=== PATIENT | male | born 1975 | race Caucasian/White ===

== ENCOUNTER 2017-08-22 14:52 | Emergency (ER) | payer OTHER ==
[2017-08-22] MEDS: predniSONE 20 MG TAB PO (17:36)
[2017-08-22] MEDS: KETOROLAC 60 MG INJ IM (17:37)
== END 2017-08-22 19:08 | disposition home or self-care (01) ==
LOC: FTE 14:52
DX: M54.42 Lumbago with sciatica, left side (principal); I10 Essential (primary) hypertension; F17.210 Nicotine dependence, cigarettes, uncomplicated
CPT/HCPCS: 72131; 96372; 99285-25

== ENCOUNTER 2018-05-19 06:00 | Inpatient (IN) | payer OTHER ==
[2018-05-19] MEDS ORDERED: CEFAZOLIN 2 GM/50 ML (PMX) 50 ML IVPB (07:00)
[2018-05-19] MEDS ORDERED: ROCURONIUM 50 MG INJ (07:49)
[2018-05-19] MEDS ORDERED: MEPERIDINE 100 MG INJ (07:49)
[2018-05-19] MEDS ORDERED: LIDOCAINE 2% (SDV) 5 ML INJ (07:49)
[2018-05-19] MEDS ORDERED: SUCCINYLCHOLINE CHLORIDE 100 MG/5 ML SYG IV (07:49)
[2018-05-19] MEDS ORDERED: PROPOFOL 20 ML (07:49)
[2018-05-19] MEDS ORDERED: GLYCOPYRROLATE 0.4 MG INJ ×2 (07:49→09:17)
[2018-05-19] MEDS ORDERED: NEOSTIGMINE 3 MG/3 ML SYRINGE ×2 (07:49→09:18)
[2018-05-19] MEDS ORDERED: CEFAZOLIN 1 GM INJ (08:42)
[2018-05-19] MEDS ORDERED: hydrALAzine 20 MG INJ (08:43)
[2018-05-19] MEDS: THROMBIN (BOVINE) 5,000 UNIT VIAL TP ×2 (08:46)
[2018-05-19] MEDS: POLYMYXIN/BACITRACIN 1L IRRIG (08:46)
[2018-05-19] MEDS: BUPIVACAINE 0.5%/EPI (SDV) 30 ML INJ (08:46)
[2018-05-19] MEDS: GELATIN SIZE 100 SPONGE (08:46)
[2018-05-19] MEDS: CA CHLORIDE 10% 10 ML SYRINGE (09:10)
[2018-05-19] MEDS ORDERED: ONDANSETRON 4 MG INJ (09:46)
[2018-05-19] MEDS ORDERED: CYCLOBENZAPRINE 10 MG TAB PO (10:00)
[2018-05-19] MEDS ORDERED: CEPASTAT LOZENGE MT (10:00)
[2018-05-19] MEDS ORDERED: DIPHENHYDRAMINE 25 MG CAP PO (10:00)
[2018-05-19] MEDS ORDERED: PROCHLORPERAZINE 10 MG TAB PO (10:00)
[2018-05-19] MEDS ORDERED: ACETAMINOPHEN 325 MG TAB PO (10:00)
[2018-05-19] MEDS ORDERED: HYDROmorphONE 0.5 MG/0.5 ML SYG IV (10:00)
[2018-05-19] MEDS ORDERED: NALOXONE (0.4 MG/ML) INJ IV (10:00)
[2018-05-19] MEDS ORDERED: HYDROCODONE/APAP (5/325) TAB PO ×2 (10:00)
[2018-05-19] MEDS ORDERED: HYDROmorphONE 1 MG/5 ML IV SYRINGE IV (10:30)
[2018-05-19] MEDS ORDERED: METOCLOPRAMIDE 10 MG INJ IV (10:30)
[2018-05-19] MEDS ORDERED: LABETALOL HCL 20MG INJ IV (10:30)
[2018-05-19] MEDS ORDERED: DIPHENHYDRAMINE 50 MG INJ IV (10:30)
[2018-05-19] MEDS ORDERED: EPHEDrine SULFATE 50 MG/5 ML SYG IV (10:30)
[2018-05-19] MEDS ORDERED: hydrALAzine 20 MG INJ IV (10:30)
[2018-05-19] MEDS ORDERED: ONDANSETRON 4 MG INJ IV (10:30)
[2018-05-19] MEDS ORDERED: MEPERIDINE 25 MG INJ IV (10:30)
[2018-05-19] MEDS ORDERED: MIDAZOLAM 1 MG/ML 2 ML INJ IV (10:30)
[2018-05-19] MEDS ORDERED: OXYCODONE/ACETAMINOPHEN (5/325) TAB PO ×2 (10:30)
[2018-05-19] MEDS ORDERED: FENTAnyl 50 MCG/ML VIAL IV ×3 (10:30)
[2018-05-19] MEDS: HYDROmorphONE 1 MG/5 ML IV SYRINGE IV ×2 (10:33→11:07)
[2018-05-19] MEDS: CEFAZOLIN 1 GM/50 ML (PMX) 50 ML IVPB (13:09)
[2018-05-19] MEDS: ONDANSETRON 4 MG INJ IV (14:43)
== END 2018-05-19 16:23 | disposition home or self-care (01) | DRG 473 ==
LOC: REC 06:00
PROC: 0RG10A0 Fusion of Cervical Vertebral Joint with Interbody Fusion Device, Anterior Approach, Anterior Column, Open Approach (ICD-10-PCS; principal; 2018-05-19 08:00)
PROC: 0RB30ZZ Excision of Cervical Vertebral Disc, Open Approach (ICD-10-PCS; 2018-05-19 08:00)
PROC: 4A11X4G Monitoring of Peripheral Nervous Electrical Activity, Intraoperative, External Approach (ICD-10-PCS; 2018-05-19 08:00)
DX: M50.022 Cervical disc disorder at C5-C6 level with myelopathy (principal); I10 Essential (primary) hypertension; E78.5 Hyperlipidemia, unspecified
CPT/HCPCS: 72050; 86850; 86900; 86901; 86999; 88304